=== PATIENT | female | born 1965 | race African-American/Black ===

== ENCOUNTER 2019-01-10 09:02 | Inpatient (IN) | payer OTHER ==
[~2019-01-10] VITALS: Ht 160 cm; Wt 110.9 kg
[~2019-01-10 09:02] MED LIST: CLARITIN10 M2 PO; FAMOTIDINE PO; HYDROCODON-ACE1 EAC7 PO; LORAZEPAM 0.50.5 MG PO; LORTAB 5 MG/5001 TA1 PO; LORTABELXR PO; MOTION RELIEF25 MG PO; NEURONTIN 300300 M1 PO; NEURONTIN600 MG PO; NORCO 5-325 TA1 EACH PO; PENICILLIN VK500 M1 PO; PHENERGAN 25 MG25 M1 PO; PHENERGAN25 M2 RC; PREDNISONE 20 M20 M1 PO; PRILOSEC40 MG PO; PROTONIX 20 MG20 M1 PO; ZOFRAN4 MG PO
[2019-01-10 11:17] VITALS: BP 118/70
[2019-01-10 16:10] VITALS: BP 114/61
--- NOTE | 2019-01-10 18:23 | NUR ---
PATIENT ADMITTED TO ROOM FROM SURGERY. SHE HAD ELECTIVE GASTRIC SLEEVE AND WAS ADMITTED TO ROOM FOR THE NIGHT. SHE IS ALERT ORIENTED X4. PLEASANT AND COOPERATIVE WITH CARE. SHE DID COMPLAIN OF PAIN AND PRN PAIN ADMINISTERED. PAIN RATING DID CHANGE SOME. EDUCATED ON SPIROMETER USE. WILL CONT WITH PLAN OF CARE.
[2019-01-10 19:38] VITALS: BP 119/62
--- NOTE | 2019-01-10 22:28 | NUR ---
Patient getting increasingly anxious due to frequent apnea monitor alarming r/t frequent movement. Pain not under control with new nausea. Resfued to continue wearing apnea monitor. Sitting on side of bed. Low fall risks per assessment. Care plan updated. Call out appropriately for needs. Orders received to increase pain medication frequency. IVFluids infusing. NPO. Frequent movement alarming monitor vtach but is truely artifacts.
[2019-01-10 23:52] VITALS: BP 115/72
[2019-01-11 01:49] LABS: HEMOGLOBIN 12.9 gm/dL (12.0-15.0); MCH 25.5 pg (26.0-34.0); MCHC 31.6 g/dL (28.0-37.0); MCV 80.8 fL (80.0-100.0); RBC 5.07 mil/uL (4.20-5.00); RDW 16.8 % (10.5-14.5); WBC 10.6 thou/uL (4.0-11.0)
[2019-01-11 01:54] LABS: CALCIUM 8.9 mg/dL (8.5-10.1); CREATININE 0.7 mg/dL (0.6-1.0); POTASSIUM 4.4 mmol/L (3.5-5.1)
--- NOTE | 2019-01-11 03:50 | NUR ---
Patient making slow progress towards outcome goals. No sleep tonight due to continues nausea and generalives abdominal pain. Dry heaves but no vomiting. Kept NPO with mouth swabs only for moisture. IVFluids infusing. ambulated around untit x 1. Zofran and Hydromorphone with some not lasting relief of nausea and pain. Lapsites dry. Up x 1 assist.
[2019-01-11 04:16] VITALS: BP 128/75
--- NOTE | 2019-01-11 06:14 | NUR ---
Patient continues to refuse apnea monitor, states it is making her nausea and anxiety worse. O2 sat spot check 97-100% on room air.
[2019-01-11 07:47] VITALS: BP 118/67
--- NOTE | 2019-01-11 10:49 | NUR ---
RD administered Pt education for nutrition advancement at bedside. Pt on clear liquids. Provided consumption goals: 1oz/15 min. No straws. Handout provided for Day 1/Week 1 fluid instruction. She expresses pain at 9/10 and frequent nausea w/ dry heaves. Pt gave proper read back insruction and denies any further questions at this time. RD will remain available prn.
[2019-01-11 15:59] VITALS: BP 109/59
[2019-01-11 19:22] VITALS: BP 108/59
[2019-01-12 04:15] VITALS: BP 120/65
[2019-01-12 04:22] VITALS: BP 111/43
--- NOTE | 2019-01-12 04:34 | NUR ---
Patient making progress towards outcome goals. Better pain control with current pain regimen. Up with minimal assist, ambulating. Slowly tolerating clear liquids. No BM. passing gas. Good urine output.
--- NOTE | 2019-01-12 04:37 | NUR ---
Vital signs and rhythm stable. Gait steady.
[2019-01-12 07:13] VITALS: BP 113/56
--- NOTE | 2019-01-12 10:18 | NUR ---
ASSESSMENT: CM REVIEWED CHART AND MET WITH PATIENT AT THE BEDSIDE. PT IS S/P LAP BAND REMOVAL. PT REPORTS SHE LIVES IN AN APT WITH HER SON. PT REPORTS ABOUT 6 STEPS WITH HANDRAILS TO GET IN THE APT. PT REPORTS NO STEPS ONCE INSIDE. PT STATES SHE AMBULATES INDEPENDENTLY BUT DOES HAVE A CANE AT HOME IF NEEDED. PT REPORTS SHE HAD HH YEARS AGO BUT UNSURE THE AGENCY. CM DISCUSSED ROLE. PT DOES NOT ANTICIPATE HAVING ANY NEEDS AT DISCHARGE. PT IS POSSIBLE DISCHARGE HOME TODAY AND REPORTS SHE WILL HAVE TRANSPORTATION AT D/C.
[2019-01-12 16:46] VITALS: BP 113/56
--- NOTE | 2019-01-12 21:08 | NUR ---
PATIENT ALERT AND ORIENTED AND UP AD KAMRAN. PATIENT DISCHARGED TO HOME IN STABLE CONDITION WITH ALL PERSONAL BELONGINGS, DISCHARGE INSTRUCTIONS AND PERSCRIPTIONS. FRIEND GAVE PATIENT RIDE HOME.
--- NOTE | 2019-01-15 13:46 | PATH ---
[facility] [place] [address] PATHOLOGY RPT PROCEDURE Name: EMMA LYONS PHILLIP Room #: 355-P DIS IN M.R.#: [id number] Admission: 01/10/19 Date of : 65 Discharge: 01/12/19 Report #: [id number] Path Case #: [id number] LCA Accession Number: [id number] . 01 Material submitted: . PART A: body - LAP BAND PART B: stomach - SLEEVE GASTRECTOMY . 01 Clinical history: . Morbid (severe) obesity due to excess calories . 02 Diagnosis: A. "Lap Band", removal: - Foreign body consistent with lap band (gross examination only). . B. "Sleeve gastrectomy", partial gastrectomy: - Gastric mucosa, submucosa and muscular wall with minimal histologic alterations. (CLW:evgeny; 01/12/2019) QMS 01/12/2019 1320 Local . 02 Electronically signed: . Celsa Mark MD, Pathologist NPI- [id number] . 01 Gross description: . A. The specimen is received fresh, labeled "Emma Lyons lap band". Received is an adjustable laparoscopic band measuring 4.5 x 4.5 x 2.0 cm, a segment of white tubing measuring 45.6 cm in length by 0.4 cm in diameter. A gross photograph is taken. Sections are not submitted. . B. The specimen is received in formalin, labeled "Emma Lyons, sleeve gastrectomy". Received is a partial gastrectomy specimen with a stapled margin of resection measuring 16.8 x 3.2 x 2.0 cm in greatest dimensions. The serosal surface is pink-romero and glistening in appearance. Opening the specimen reveals light dukes to pink-dukes mucosa with normal rugal folds. No distinct nodules or lesions are noted grossly. The specimen is submitted representatively in cassette B1. (CAA; 01/11/2019) QAC/QAC 01/12/2019 1318 Local . 02 Pathologist provided ICD-10: E66.01 . 02 CPT . 699848, 260042 Specimen Comment: A courtesy [place] of [place] [address] PATHOLOGY RPT PROCEDURE Name: EMMA LYONS PHILLIP Room #: 355-P DIS IN M.R.#: [id number] Admission: 01/10/19 Date of : 65 Discharge: 01/12/19 Report #: [id number] Path Case #: [id number] Specimen Comment: [phone], . Specimen Comment: Report sent to / DR ENRIQUEZ Performed at: [address], [place] [id number] MD Wilman Encinas MD Phone: [phone] Performed at: [address] [id number] MD Ashley Dickinson MD Phone: [phone]
--- NOTE | 2019-01-16 17:29 | O ---
[address] [place] [address] OPERATIVE REPORT Name: EMMA LYONS Room #: 355-P [facility] IN M.R.#: [id number] Admission: 01/10/19 Attend Phys: Oumar Chase MD Discharge: 01/12/19 Date of : 65 Report #: [id number] THIS REPORT FOR: //name// CC: Quynh Hester DATE OF SERVICE: 01/10/2019 PREOPERATIVE DIAGNOSES: 1. Morbid obesity. 2. History of lap band placement. 3. Gastroesophageal reflux disease. POSTOPERATIVE DIAGNOSES: 1. Morbid obesity. 2. History of lap band placement. 3. Gastroesophageal reflux disease. OPERATIVE PROCEDURE DONE: 1. Laparoscopic lap band removal and port removal. 2. Laparoscopic lysis of adhesions. 3. Laparoscopic sleeve gastrectomy. OPERATING SURGEON: Dr. Oumar Chase. INDICATIONS FOR THE PROCEDURE: The patient is a 53-year-old female who presented with a history of lap band placement a few years ago. The patient had plateaued her total weight loss and she has been having severe reflux symptoms. She wishes to have the lap band removed and revise to her gastric sleeve. The patient was advised laparoscopic vertical sleeve gastrectomy. The patient showed understanding and agreed to proceed. DESCRIPTION OF PROCEDURE: After explaining to the patient in detail and informed consent was obtained. The patient was identified in the preoperative holding area. The patient was transferred to the operating room and was placed in supine position. Sequential compressive devices were placed for DVT prophylaxis. Preoperative antibiotics were given. After induction of anesthesia, the abdomen was prepped and draped in a sterile fashion. Through a left upper quadrant 1 cm incision and using Optiview technique, peritoneal cavity was entered and pneumoperitoneum was created, so thereafter under direct vision, another 5 mm trocar was placed in the left mid abdomen, another 15 mm trocar was placed in the right mid abdomen, another 5 mm trocar was placed in the right subcostal region and through a 1 cm incision in the epigastrium, a Gita retractor was introduced and the left lobe of the liver was retracted. Upon initial inspection, lap band appeared to be in place. There were few [facility] [address] [place] [address] OPERATIVE REPORT Name: CLAUDIA LYONSDot FISHER Room #: 355-P [facility] IN M.R.#: [id number] Admission: 01/10/19 Attend Phys: Oumar Chase MD Discharge: 01/12/19 Date of : 65 Report #: [id number] adhesions in the upper abdomen, which were gently taken down using the EnSeal and sharp dissection. The adhesions over the lap band were dissected off using hook electrocautery. Lap band was unbuckled and the tubing was divided distal to the hub and the lap band was removed. The gastrogastric plication was gently dissected off using sharp and blunt dissection. The capsulectomy was done. Thereafter, a 36-Chadian orogastric ViSiGi tube was inserted into the stomach and stomach was suctioned out. This was placed along the lesser curve of the stomach. I then took down the gastroepiploic vessel using EnSeal. This was continued superiorly. The short gastric vessels were taken down. The posterior attachments of the stomach on the pancreas were released distally. The gastroepiploic vessels were taken down up to about 4 cm proximal to the pylorus. Stomach was then divided in a vertical fashion with multiple Endo-AURY [place] staplers, 2 green loads, 2 black loads and another green load was used to divide the stomach in a vertical fashion to create a loosely around the 36-Chadian bougie. An air leak test was performed by instilling air into the stomach and by irrigation of fluid along the staple line. There was no leak that was noted. Absolute hemostasis was then ensured. Thorough saline irrigation was given. The orogastric tube was removed. The sleeve gastrectomy specimen was removed. The 15 mm port site incision was closed with 0 Vicryl, skin was closed with 4-0 Monocryl for all the incisions except the 15-mm port site incision, which I extended to remove the port. The port was identified, was dissected off from the surrounding capsule. The port was then removed. The capsule also was removed. The 2 subcutaneous sutures were placed. Skin was closed with 4-0 Monocryl and Dermabond was applied. Approximately 10 mL of lidocaine and Marcaine mix was injected into all the incisions. The patient was awoken from anesthesia and was transferred to the recovery room in stable condition. ESTIMATED BLOOD LOSS: 25 mL. CONDITION THE PATIENT: Stable. FLUIDS GIVEN: Per Anesthesia note. SPECIMEN SENT: Sleeve gastrectomy specimen. COMPLICATIONS: None. ANESTHESIA: General anesthesia. <ELECTRONICALLY SIGNED> By: Oumar Chase MD 01/16/19 1729 1438 37 Oumar Chase MD /nt
== END 2019-01-12 17:30 | disposition home or self-care (01) | DRG 621 ==
LOC: PRE 09:02 → TBA 09:43 → 3W 09:43 → PRE 11:13 → 3W 15:53
PROVIDERS: ADMIT Surgery
DX: E66.01 Morbid (severe) obesity due to excess calories (principal); K21.9 Gastro-esophageal reflux disease without esophagitis; Z88.8 Allergy status to other drugs, medicaments and biological substances
CPT/HCPCS: 10879; 50010; 50101; 50222; 50249; 50411; 50555; 50739; 50740; 50804; 51489; 52265; 52266; 53307; 53311; 54022; 54118; 56462; 56524; 56525; 56526; 62110; 62900; 70005

== ENCOUNTER 2020-03-16 08:17 | Emergency (ER) | payer OTHER ==
[~2020-03-16] VITALS: Ht 160 cm; Wt 97.5 kg
[2020-03-16] MEDS ORDERED: PROCHLORPERAZINE5 M2 PO (08:29)
[2020-03-16] MEDS ORDERED: EZETIMIBE10 MG PO (08:29)
[2020-03-16] MEDS ORDERED: TRAMADOL 50 MG50 MG PO (08:29)
[2020-03-16] MEDS ORDERED: CLOPIDOGREL75 MG PO (08:29)
[2020-03-16 09:55] LABS: ABSOLUTE NEUTROPHILS 2.4 thou/uL (1.4-8.2); BASOPHILS 0.9 % (0.0-2.0); EOSINOPHILS 1.9 % (0.0-3.0); HEMATOCRIT 39.3 % (37.0-47.0); HEMOGLOBIN 12.6 gm/dL (12.0-15.0); LYMPHOCYTES 39.4 % (24.0-44.0); MCHC 31.9 g/dL (28.0-37.0); MCV 84.5 fL (80.0-100.0); MONOCYTES 9.8 % (1.0-8.0); PLATELET COUNT 200 thou/uL (150-400); RBC 4.66 mil/uL (4.20-5.00); RDW 14.5 % (10.5-14.5)
[2020-03-16 09:59] LABS: ANION GAP 9 mmol/L (7-16); BUN 13 mg/dL (7-18); CHLORIDE 105 mmol/L (98-107); CO2 27 mmol/L (21-32); CREATININE 0.8 mg/dL (0.6-1.0); GLUCOSE 93 mg/dL (74-106); POTASSIUM 3.6 mmol/L (3.5-5.1); SODIUM 141 mmol/L (136-145)
[2020-03-16 10:06] LABS: ALBUMIN 3.2 g/dL (3.4-5.0); DIRECT BILIRUBIN < 0.1 mg/dL (<0.1-0.2); SGOT 23 U/L (15-37); SGPT 26 U/L (30-65); TOTAL BILIRUBIN 0.2 mg/dL (0.2-1.0); TOTAL PROTEIN 6.6 g/dL (6.4-8.2)
[2020-03-16] MEDS ORDERED: NORCO 5-325 TA1 EAC2 PO (11:51)
[2020-03-16 12:27] VITALS: BP 118/64
== END 2020-03-16 12:38 | disposition home or self-care (01) ==
LOC: ER 08:17
PROVIDERS: Emergency Medicine
DX: M79.10 Myalgia, unspecified site (principal); K21.9 Gastro-esophageal reflux disease without esophagitis; Z90.710 Acquired absence of both cervix and uterus; Z79.01 Long term (current) use of anticoagulants; Z79.899 Other long term (current) drug therapy; Z88.8 Allergy status to other drugs, medicaments and biological substances

== ENCOUNTER → 2021-01-27 | Outpatient (CLI) | payer OTHER ==
[~2021-01-27] MED LIST changes: +CALCIUM500 MG PO; +CLOPIDOGREL75 MG PO; +EZETIMIBE10 MG PO; +NORCO 5-325 TA1 EAC2 PO; +PROCHLORPERAZINE5 M2 PO; +REPATHA SU140 MG/1 M SUBQ; +TRAMADOL 50 MG50 MG PO; +VITAMIN B-121000 MC2 SUBLING; +VITAMIN D21250 MCG PO
[2021-01-27 09:48] LABS: HEMOGLOBIN 13.2 gm/dL (12.0-15.0); MCH 26.9 pg (26.0-34.0); MCHC 32.3 g/dL (28.0-37.0); MCV 83.5 fL (80.0-100.0); RBC 4.92 mil/uL (4.20-5.00); RDW 14.8 % (10.5-14.5); WBC 5.3 thou/uL (4.0-11.0)
[2021-01-27 11:25] LABS: ALBUMIN 3.6 g/dL (3.4-5.0); CALCIUM 9.2 mg/dL (8.5-10.1); CREATININE 0.8 mg/dL (0.6-1.0); POTASSIUM 4.2 mmol/L (3.5-5.1); TOTAL BILIRUBIN 0.3 mg/dL (0.2-1.0)
[2021-01-28 01:06] LABS: GLYCOHEMOGLOBIN (HGB A1C) 5.5 % (4.8-5.6)
== END ==
LOC: PAC 08:10
PROVIDERS: ATTEND Surgery
DX: Z01.812 Encounter for preprocedural laboratory examination (principal); K44.9 Diaphragmatic hernia without obstruction or gangrene

== ENCOUNTER 2021-02-05 07:14 | Inpatient (IN) | payer OTHER ==
[~2021-02-05] VITALS: Ht 160 cm; Wt 102.1 kg
[2021-02-05 15:39] VITALS: BP 123/78
--- NOTE | 2021-02-05 18:39 | NUR ---
Pt transferred to unit from PACU. Pt a&ox4. Pt very nauseous not relieved by anti-emetics. Pt has emesis that appears to contain some blood in it. Provider notified. Full admission unable to complete due to patient not being able to answer all questions because of the nausea. Will report to channing RN. IVF and IOV antibiotics infusing. Call light within reach. Will continue to monitor.
[2021-02-05 20:45] VITALS: BP 129/72
--- NOTE | 2021-02-06 01:10 | NUR ---
PT ASSESSED AT START OF SHIFT 1900. RESTING IN BED. IV INTACT AND FLUIDS INFUSING. BROWN COLOR EMESIS NOTED FROM DURING THE DAY. SUP PHERNAGAN GIVEN AND MORPHINE GIVEN FOR PAIN. FOLLEY CATH INTACT. ADDMISSION ASSESSMENT COMPLETED. UP X1 TO THE BSC. SCD'S IN PLACE, MACK INTACT WILL CONT TO MONITOR TILL EOS.
[2021-02-06 08:24] VITALS: BP 133/70
--- NOTE | 2021-02-06 11:00 | NUR ---
INITIAL ASSESSMENT: Received consult. SW reviewed chart and spoke with nursing. Pt is s/p gastric bypass. SW met with pt at bedside. Introduced role of SW. Pt requested SW return at a later time, as she was not feeling well. Per chart, pt is alert/orientated x 4. Pt lives at home with family. Prior to admission, pt has been independent with ADLs. Pt does have a cane to use as needed. Pt's PCP is Dr. Willie Washington. Plan is for pt to discharge home when medically stable. SW is following to assist as needed with discharge planning.
[2021-02-06 11:08] LABS: ABSOLUTE NEUTROPHILS 5.2 thou/uL (1.4-8.2); BASOPHILS 0.5 % (0.0-2.0); EOSINOPHILS 0.1 % (0.0-3.0); HEMATOCRIT 37.5 % (37.0-47.0); LYMPHOCYTES 20.3 % (24.0-44.0); MCH 26.8 pg (26.0-34.0); MCV 83.8 fL (80.0-100.0); PLATELET COUNT 208 thou/uL (150-400); POLYS 68.1 % (36.0-66.0); RBC 4.47 mil/uL (4.20-5.00); RDW 14.2 % (10.5-14.5); WBC 7.6 thou/uL (4.0-11.0)
[2021-02-06 11:17] LABS: CALCIUM 8.4 mg/dL (8.5-10.1); CREATININE 0.8 mg/dL (0.6-1.0)
[2021-02-06 12:28] VITALS: BP 136/64
[2021-02-06 12:39] VITALS: BP 134/75
--- NOTE | 2021-02-06 13:16 | NUR ---
pt up in bed removed tele box, states she is allergic to the patches. Pt up, pain and n/v under control, call light with in reach.
--- NOTE | 2021-02-06 17:58 | NUR ---
obtained order for discontinue of sykes.
[2021-02-06 19:13] VITALS: BP 125/70
--- NOTE | 2021-02-06 22:50 | NUR ---
ASSESSMENT COMPLETED. PT IS ALERT AND ORIENTED. PLEASANT. SHE IS OOB WITH SBA. VOIDING OKAY. N/V RESOLVED, PAIN BETTER.MEDICATIONS ON BOARD BEING UTILISED. AFEBRILE.LAP SITES TO ABDOMEN LOOK OKAY. SHE DENIES ANY FURTHER CONCERNS AT THIS TIME. CALL LIGHT WITHIN REACH.
[2021-02-07 04:46] VITALS: BP 127/70
[2021-02-07 07:16] VITALS: BP 106/64
--- NOTE | 2021-02-07 11:15 | NUR ---
ASSUMED PT CARE THIS AM. PT IS ALERT & ORIENTED X4. PT HAS L CHEST PORT AND R LIMB ALERT. PT HAD SURGERY ON 02/05 AND HAS 3 LAP SITES WITH DERMABOND CLEAN, DRY AND INTACT. PT IS ON ROOM AIR. ADVANCED DIET TO BARIATRIC STAGE 2/FULL LIQUID DIET PER DR KEANE. PT TOLERATED DIET AND MEDICATION WELL. EDUCATED PT TO AMBULATE IN THE HALLWAY. WILL CONTINUE TO MONITOR PT. FOLLOW POC.
[2021-02-07 12:33] VITALS: BP 106/64
--- NOTE | 2021-02-07 12:35 | O ---
[facility] [place] [address] [place] [address] OPERATIVE REPORT Name: EMMA LYONS Room #: 438-P ADM IN M.R.#: [id number] Admission: 02/05/21 Attend Phys: Oumar Chase MD Discharge: Date of : 65 Report #: [id number] THIS REPORT FOR: cc: Killian Washington K. Steven DO Joseph, Sigi P. MD ~ cc: Quynh Washington DO DATE OF SERVICE: 02/05/2021 PREOPERATIVE DIAGNOSES: 1. Morbid obesity. 2. Gastroesophageal reflux disease. 3. Hyperlipidemia. 4. Bariatric surgery status. POSTOPERATIVE DIAGNOSES: 1. Morbid obesity. 2. Gastroesophageal reflux disease. 3. Hyperlipidemia. 4. Bariatric surgery status. OPERATIVE PROCEDURE DONE: 1. Laparoscopic Beth-en-Y gastric bypass. 2. Upper GI endoscopy. OPERATING SURGEON: Oumar Chase MD INDICATIONS FOR THE PROCEDURE: The patient is a 55-year-old female who presented with features of class 3 obesity. She was noted to have a weight of 106 kilograms with a BMI of 41 with the above-listed comorbidities. The patient was advised laparoscopic Beth-en-Y gastric bypass and upper GI endoscopy. The patient showed understanding and agreed to proceed. PROCEDURE IN DETAIL: After explaining to the patient in detail and informed consent was obtained, the patient was identified in the preoperative holding area. The patient was transferred to the operating room and was placed in supine position. Sequential compressive devices were placed for DVT prophylaxis. Preoperative antibiotics were given. After induction of anesthesia, the abdomen was prepped and draped in a sterile fashion. Through a left upper quadrant 1 cm incision and using Optiview technique, peritoneal cavity was entered and pneumoperitoneum was created. Thereafter, under direct vision, another 5 mm trocar was placed in the left mid abdomen and the 12 mm trocar was placed in the right mid abdomen. Another 5 mm trocar was placed in the right subcostal region and through a 1 cm incision in the epigastrium, a Gita retractor was introduced and the left lobe of the liver was retracted. On initial inspection, [address] [address] OPERATIVE REPORT Name: EMMA LYONS Room #: 438-P [facility] IN M.R.#: [id number] Admission: 02/05/21 Attend Phys: Oumar Chase MD Discharge: Date of : 65 Report #: [id number] the patient was noted to have few adhesions of omentum on the undersurface of the liver. This was all taken down using EnSeal. The gastrohepatic omentum was divided and the small blood vessels and the fatty tissue were divided at the junction of the proximal and middle third of the stomach along the lesser curve using an Endo-AURY white load stapler. At this point, stomach was divided in a transverse fashion with a green load stapler with Genia-Strips. I then divided the greater omentum in the middle using EnSeal. The small bowel was then measured downstream for about 50 cm from the ligament of Treitz. An enterotomy was made at this point. A posterior gastrotomy was made on the gastric pouch and a posterior gastrojejunostomy was made. The common gastroenterotomy was then closed using 2-0 continuous Vicryl sutures using an EndoStitch device and a second layer was also placed using 2-0 Ethibond sutures. I then divided the biliary limb just proximal to the anastomosis. I then measured the Beth limb for about 125 cm. An enterotomy was made at this point. Another enterotomy was made on the biliary limb and a [id number] jejunojejunostomy was made. The common enterotomy was then closed using another blue load stapler with Genia-Strips. The mesenteric defect was closed with 2-0 Ethibond sutures. I then occluded the Beth limb just distal to the anastomosis. An upper GI endoscopy was then performed and the gastric pouch appeared to be of adequate size. The Beth limb was entered without difficulty and air leak test was performed by insufflation of the stomach and by irrigation of fluid along the staple line. There was no leak that was noted. Absolute hemostasis was ensured. Thorough saline irrigation was given. The scope was removed. A thorough saline irrigation was also given in the abdomen. Once again, after ensuring adequate hemostasis, I instilled about 10 mL of lidocaine and Marcaine mix under the left hemidiaphragm. The Gita retractor was removed. The 12 mm port site incision was closed with 0 Vicryl for the fascia. Skin was closed with 4-0 Monocryl. Dermabond was applied. The patient was stable at the end of the procedure. The patient was awoken from anesthesia and was transferred to the recovery room in stable condition. ESTIMATED BLOOD LOSS: Approximately 25 mL. CONDITION: The patient is stable. FLUIDS GIVEN: Per Anesthesia notes. SPECIMEN SENT: None. COMPLICATIONS: None. [facility] [address] [place] [address] OPERATIVE REPORT Name: EMMA LYONS Room #: 438-P ADM IN Bunny.#: [id number] Admission: 02/05/21 Attend Phys: Oumar Chase MD Discharge: Date of : 65 Report #: [id number] ANESTHESIA: General anesthesia. <ELECTRONICALLY SIGNED> By: Oumar Chase MD 02/07/21 1235 1231 1249 Oumar Chase MD /nt
== END 2021-02-07 15:09 | disposition home or self-care (01) | DRG 621 ==
LOC: 4S 07:14 → TBA 07:14 → OR 10:50 → PRE 13:12 → EDSTATUS 15:27 → 4S 15:28 → PRE 15:50 → 4S 02-06 14:46
PROVIDERS: ADMIT Surgery; ATTEND Surgery
PROC: 0D164ZA Bypass Stomach to Jejunum, Percutaneous Endoscopic Approach (ICD-10-PCS; principal; 2021-02-05)
PROC: 0DJ08ZZ Inspection of Upper Intestinal Tract, Via Natural or Artificial Opening Endoscopic (ICD-10-PCS; principal; 2021-02-05)
DX: E66.01 Morbid (severe) obesity due to excess calories (principal); K21.9 Gastro-esophageal reflux disease without esophagitis; Z20.822 Contact with and (suspected) exposure to COVID-19; E78.5 Hyperlipidemia, unspecified; Z98.84 Bariatric surgery status; Z88.8 Allergy status to other drugs, medicaments and biological substances; Z68.39 Body mass index [BMI] 39.0-39.9, adult
CPT/HCPCS: 10100; 10102; 50010; 50101; 50222; 50386; 50555; 51489; 52265; 52266; 53307; 54022; 54118; 55326; 56462; 56525; 56526; 56531; 57092; 58574; 58587; 58869; 58870; 58872; 58873; 58911; 62110; 62900; 70005